=== PATIENT | female | born 1980 | race Caucasian/White ===

== ENCOUNTER 2023-11-10 12:47 | Outpatient (AMB) | payer BC, SELFPAY ==
--- NOTE | 2023-11-10 13:12 | A.SPINEOV_ITS ---
Intake Visit Reasons: lumbar radiculopathy Intake Note: Ms. Valdes is here today c/o right sided sciatica pain with numbness on right foot. Head Transfer Clerk Required: No Allergies Soy Allergy (Severe, Uncoded 11/10/23 13:14) [facility] Assessment & Plan Assessment & Plan (1) Lumbar disc herniation: Code(s): M51.26 - Other intervertebral disc displacement, lumbar region Category: Medical Plan Dear Nic, Thank you for referring Mrs Valdes to our office today. She is a very nice 43-ye ar-old female that presents to the office today for evaluation of an intermittent lumbar radiculopathy which started about 3-4 months ago. She had been having some issues in March when her back went out and she was having mainly back discomfort. Sometime in May she had a similar event but shortly thereafter she began experiencing pain shooting down the leg into her calf with a feeling of vibration and tingling sensation on the bottom of her foot. That seemed to get better for a bit, she went back to work in late August or early September and noticed abrupt increase in the pain again. She had been going through conservative management including anti-inflammatories, gabapentin, Aleve, naproxen and even Percocet as needed. She started physical therapy and has been doing that for the last few months without any significant improvement. The only thing that helped was an S1 transforaminal injection that did give her excellent relief for about 10 days. She had an MRI showing a herniated disc on the right at L5-S1. At a subsequent follow-up in your office, because of the intensity the pain, she wanted to be surgically evaluated in his here in the office today. PMH: She is otherwise healthy, history of hypertension and the current disc herniation that she is dealing with but other than that no major medical problems. Social hx: She has not smoke, drink use any recreational drugs Medications: Percocet, gabapentin, Aleve, naproxen Allergies: Anything containing soy Physical exam: She is awake alert oriented, she is here today using a walker. She has an antalgic gait and appears uncomfortable just getting up on the examining table. Positive straight leg raise at 20 degrees. She has mild weakness in her plantar flexion which I would rate as 4-5. Absent Achilles re flex on the right. Imaging review: Lumbar MRI done at [facility] in September 2023 shows transitional anatomy and a right L5-S1 herniated disc. The disc herniation is compressing and displacing posteriorly the right S1 nerve root. Impression: 43-year-old female suffering from a right S1 radiculopathy secondary to herniated disc. She attempted conservative management over the course of 3-4 months. The only thing that was successful was not S1 transforaminal injection. That gave her about 10 days of relief. However, the pain is currently back to being quite intense. She has been unable to work. Unable to participate in activities with her family. She has been using a walker just to get around. She does demonstrate some weakness of her foot in an absent Achilles reflex. I showed her imaging to Dr. Matias, she is a good candidate for a right L5-S1 microdiskectomy. I have tentatively booked her for 11/20/2023. Pt was given risk and benefits of surgery including but not limited to infection, hematoma , nerve injury,durotomy, weakness,bowel/bladder injury, persistent pain, recurrent herniated disc as well as the option to continue with conservative treatment and patient wishes to proceed with surgery. Pt is aware they should stop their motrin, aspirin 7 days prior to surgery. All questions were answered to the best of our ability. If there is anything about this patients medical history that we have overlooked or concerns you have about us proceeding with surgery we would appreciate any input you can offer. Thank you for allowing us to care for your patient. The total time spent with this visit with this patient was 45 minutes reviewing history, physical exam, lumbar imaging review, and implementation of treatment plan or further diagnostic testing Tucker Matias MD,PhD [facility] Coding Level of Care Code New Pt Level 4 (18916) Diagnoses Lumbar disc herniation M51.26
== END 2023-11-10 14:26 | disposition home or self-care (01) ==
PROVIDERS: PCP Internal Medicine; Referring Provider Physician Assistant; Visit Provider Physician Assistant
DX: M51.26 Other intervertebral disc displacement, lumbar region (principal)
CPT/HCPCS: 99204

== ENCOUNTER → 2023-11-10 12:47 | Outpatient (BNVA) | payer BC, SELFPAY | PROVIDERS: PCP Internal Medicine; Visit Provider Physician Assistant ==

== ENCOUNTER 2023-11-20 08:47 | Day surgery (SDC) | payer BC, SELFPAY ==
[2023-11-14 13:34] VITALS: BP 162/80; PULSE 84; RESP 18; O2SAT 100; BMI 27.3
--- NOTE | 2023-11-14 13:59 | ECG_ITS ---
Test Reason : PRE OP* Patient had to sit up during ekg. Blood Pressure : / mmHG Vent. Rate : 078 BPM Atrial Rate : 078 BPM P-R Int : 164 ms QRS Dur : 080 ms QT Int : 354 ms P-R-T Axes : 060 036 039 degrees QTc Int : 403 ms Normal sinus rhythm Nonspecific T wave abnormality Abnormal ECG No previous ECGs available Referred By: Dyana Diaz Electronically Signed By:NAHOMY HILL
[2023-11-14 14:27] LABS: MANUAL DIFF FLAG NO
[2023-11-14 14:50] LABS: Basophils Percent Auto 0.4 % (0-2); Eosinophils Absolute Auto 0.1 X10*3/uL (0.0-0.4); Eosinophils Percent Auto 1.1 % (0-4); Hemoglobin 13.8 g/dl (12.0-16.0); Imm Gran Abs Auto 0.03 X10*3/uL (0.00-0.03); Imm Gran Pct Auto 0.4 % (0.0-0.4); Lymphocytes Percent Auto 27.9 % (20-40); Mean Corpuscular HGB Conc 33.7 g/dl (31.0-35.0); Mean Corpuscular Volume 95.1 fL (80.0-98.0); Mean Platelet Volume 9.1 fL (9.4-12.3); Monocytes Absolute Auto 0.5 X10*3/uL (0.1-1.2); Monocytes Percent Auto 6.3 % (2-11); Neutrophils Absolute Auto 4.7 x10*3/uL (2.0-8.3); Neutrophils Percent Auto 63.9 % (45-73); Platelet Count 305 X10*3/uL (160-400); Red Blood Count 4.31 X10*6/uL (4.20-5.50); Red Cell Distribution Width 12.7 % (11.0-16.0); White Blood Count 7.3 X10*3/uL (4.8-10.8)
[2023-11-14 15:12] LABS: Anion Gap 12 (12-20); Blood Urea Nitrogen 12 mg/dL (9-16); Calcium 9.4 mg/dL (8.4-10.2); Carbon Dioxide 26 mmol/L (22-29); Chloride 105 mmol/L (96-108); Creatinine Clr Calc Pharmacy 83.1; Estimated Glomerular Filt Rate > 60; Glucose Random 87 mg/dL (60-115); Potassium 3.6 mmol/L (3.3-5.1); Sodium 139 mmol/L (135-145)
--- NOTE | 2023-11-19 09:36 | P.CONAN_ITS ---
Documented by User: Pam Riojas NP 11/19/23 09:38 HPI - Anesthesia Eval Consult details Narrative: 43yo F for Right L5-S1 MicroLumbar discectomy PAT eval with Dr Diaz 11/14/23 [facility] Active Problems Active Problems: All Active Problems Lumbar disc herniation (Acute) Past Medical History Medical History Scoliosis Back pain IgA nephropathy Weakness Numbness Positive TB test Asthma ADHD HTN (hypertension) Surgical History Surgical History Hx of wisdom tooth extraction History of loop electrical excision procedure (LEEP) No pertinent past surgical history Social History Social History Are you a primary home child care provider to a significant other at home: No Do you presently have visiting nurse or other home services: No Patient Tobacco Use Status: Never used Tobacco Use of substances other than those prescribed or required for medical reasons: Yes Substance Use Type Other:: vape, and gummies Substance Use Frequency: Daily Have you been hit, kicked, punched, or otherwise hurt by someone within the past year? If so, by whom?: No Are you DNR?: No Advance Directives: No Advance Directives Information Provided: Yes Advance Directives on File: No Recently lost weight without trying: No Eating poorly because of decreased appetite: No Nutrition Risks: No Nutritional Risk Patient : No : No Poor oral hygiene: Yes (upper left crown) Meds Allergies Allergy/AdvReac Type Severity Reaction Status Date / Time Soy Allergy Severe Hives Uncoded 11/10/23 13:14 Home Medications ?Medication ?Instructions ?Recorded ?Confirmed ?Last Taken ?Type bupropion HCl 75 mg tablet 37.5 mg PO BID 11/14/23 11/14/23 Unknown History buspirone 5 mg tablet 5 mg PO TID 11/14/23 11/14/23 Unknown History clindamycin-tretinoin 1.2 %-0.025 1 appl topical Q OTHER DAY 11/14/23 11/14/23 Unknown History % topical gel dextroamphetamine-amphetamine 5 mg 2.5 mg PO BID 11/14/23 11/14/23 Unknown History tablet drospirenone (contraceptive) 4 mg 1 tab PO DAILY 11/14/23 11/14/23 Unknown History (28) tablet (Slynd) gabapentin 300 mg capsule 300 mg PO QID 11/14/23 11/14/23 Unknown History hydrochlorothiazide 12.5 mg tablet 12.5 mg PO DAILY 11/14/23 11/14/23 Unknown History lorazepam 0.5 mg tablet 0.5 mg PO DAILY PRN anxiety 11/14/23 11/14/23 Unknown History oxycodone-acetaminophen 5 mg-325 1 tab PO QID 11/14/23 11/14/23 Unknown History mg tablet propranolol 20 mg tablet 20 mg PO BID PRN Anxiety 11/14/23 11/14/23 Unknown History Exam Height,Weight and Vital Signs: Height 5 ft 4 in Weight 72.121 kg Last Vital Signs Pulse 84 11/14/23 13:34 Resp 18 11/14/23 13:34 BP 162/80 H 11/14/23 13:34 Pulse Ox 100 11/14/23 13:34 O2 Del Method Room Air 11/14/23 13:34 Pertinent Lab Results Pertinent Lab Results: Laboratory Tests 11/14/23 14:25 WBC 7.3 RBC 4.31 Hgb 13.8 Hct 41.0 MCV 95.1 MCH 32.0 MCHC 33.7 RDW 12.7 Plt Count 305 MPV 9.1 L Immature Gran % (Auto) 0.4 Neut % (Auto) 63.9 Lymph % (Auto) 27.9 [place] % (Auto) 6.3 Eos % (Auto) 1.1 Baso % (Auto) 0.4 Lymph # (Auto) 2.0 [place] # (Auto) 0.5 Eos # (Auto) 0.1 Baso # (Auto) 0.0 Abs Immat Gran (auto) 0.03 Absolute Neuts (auto) 4.7 Absolute Nucleated RBC 0.000 Nucleated RBC % (auto) 0.0 Sodium 139 Potassium 3.6 Chloride 105 Carbon Dioxide 26 Anion Gap 12 BUN 12 Creatinine 0.84 Estim Creat Clear Calc 83.1 Estimated GFR > 60 Random Glucose 87 Calcium 9.4 Narrative Narrative: EKG 10/2023 Vent. Rate : 078 BPM Atrial Rate : 078 BPM P-R Int : 164 ms QRS Dur : 080 ms QT Int : 354 ms P-R-T Axes : 060 036 039 degrees QTc Int : 403 ms Normal sinus rhythm Nonspecific T wave abnormality Abnormal ECG No previous ECGs available Assessment and Plan Assessment Anesthesia Assessment: Chart Reviewed Documented by User: Meagan Carlin MD 11/20/23 11:34 PMFSH Past Medical History Medical History Scoliosis Back pain IgA nephropathy Weakness Numbness Positive TB test Asthma ADHD HTN (hypertension) Surgical History Surgical History Hx of wisdom tooth extraction History of loop electrical excision procedure (LEEP) No pertinent past surgical history History of Problems with Anesthesia: No Social History Social History Are you a primary home child care provider to a significant other at home: No Do you presently have visiting nurse or other home services: No Patient Tobacco Use Status: Never used Tobacco Use of substances other than those prescribed or required for medical reasons: Yes Substance Use Type Other:: vape, and gummies Substance Use Frequency: Daily Have you been hit, kicked, punched, or otherwise hurt by someone within the past year? If so, by whom?: No Are you DNR?: No Advance Directives: No Advance Directives Information Provided: Yes Advance Directives on File: No Recently lost weight without trying: No Eating poorly because of decreased appetite: No Nutrition Risks: No Nutritional Risk Patient : No : No Poor oral hygiene: Yes (upper left crown) Meds Allergies Allergy/AdvReac Type Severity Reaction Status Date / Time Soy Allergy Severe Hives Uncoded 11/10/23 13:14 Home Medications ?Medication ?Instructions ?Recorded ?Confirmed ?Last Taken ?Type bupropion HCl 75 mg tablet 37.5 mg PO BID 11/14/23 11/14/23 Unknown History buspirone 5 mg tablet 5 mg PO TID 11/14/23 11/14/23 Unknown History clindamycin-tretinoin 1.2 %-0.025 1 appl topical Q OTHER DAY 11/14/23 11/14/23 Unknown History % topical gel dextroamphetamine-amphetamine 5 mg 2.5 mg PO BID 11/14/23 11/14/23 Unknown History tablet drospirenone (contraceptive) 4 mg 1 tab PO DAILY 11/14/23 11/14/23 Unknown History (28) tablet (Slynd) gabapentin 300 mg capsule 300 mg PO QID 11/14/23 11/14/23 Unknown History hydrochlorothiazide 12.5 mg tablet 12.5 mg PO DAILY 11/14/23 11/14/23 Unknown History lorazepam 0.5 mg tablet 0.5 mg PO DAILY PRN anxiety 11/14/23 11/14/23 Unknown History oxycodone-acetaminophen 5 mg-325 1 tab PO QID 11/14/23 11/14/23 Unknown History mg tablet propranolol 20 mg tablet 20 mg PO BID PRN Anxiety 11/14/23 11/14/23 Unknown History Exam Airway Mallampati Class: II TM Dist: >3cm Neck ROM: Full Loose/Missing/Broken Teeth: No Heart: RRR Lungs: CTA Assessment and Plan Assessment Anesthesia Assessment: Anesthesia Plan Discussed Final Anesthetic Review History of Problems with Anesthesia: No NPO: Yes ASA Class: II Final Preanesthetic Review: Meds/Allgs Chart Reviewed, Consent Obtained/Reviewed and Anes Risks/Benef Reviewed Patient Risk: Low Procedure Risk: Intermediate Anesthetic Plan Anesthetic Plan: GA Disposition: Standard PACU
[2023-11-20] VITALS (9 sets, daily range): BP systolic 110–151; BP diastolic 72–89; PULSE 89–120; RESP 14–18; TEMP 36.1–37.6; O2SAT 98–100; BMI 27.5
--- NOTE | 2023-11-20 07:28 | P.DS_ITS ---
DS: Providers Provider Date of Service: 11/20/23 Date of discharge: 11/20/23 Primary care physician: Ronny Ponce MD Admitting clinician: Tez Matias DS: Diagnosis Discharge Diagnosis (1) Lumbar disc herniation: Status: Acute DS: Summary Time Attestation Discharge Coordination Time (in mins): 5 Quality: Safe Use of Opioids Does Pt have an Active Cancer Diagnosis on the Problem List?: No Quality: Stroke Does the patient have a stroke diagnosis?: No Physical Exam Vital Signs: Vital Signs: Last Vital Signs Pulse 84 11/14/23 13:34 Resp 18 11/14/23 13:34 BP 162/80 H 11/14/23 13:34 Pulse Ox 100 11/14/23 13:34 O2 Del Method Room Air 11/14/23 13:34 BMI result Body Mass Index 27.3 Discharge Plan Discharge Patient Disposition: Home, Self-Care Referrals: Ronny Ponce MD [Primary Care Provider] - 1 Week Discharge Medications: New oxycodone 5 mg tablet 5 mg PO Q4H PRN (Reason: pain) Qty: 20 0RF Rx Instructions: Partial Fill upon patient request. Continued bupropion HCl 75 mg tablet 37.5 mg PO BID buspirone 5 mg tablet 5 mg PO TID lorazepam 0.5 mg tablet 0.5 mg PO DAILY PRN (Reason: anxiety) gabapentin 300 mg capsule 300 mg PO QID propranolol 20 mg tablet 20 mg PO BID PRN (Reason: Anxiety) dextroamphetamine-amphetamine 5 mg tablet 2.5 mg PO BID clindamycin-tretinoin 1.2-0.025 % gel 1 appl topical Q OTHER DAY hydrochlorothiazide 12.5 mg tablet 12.5 mg PO DAILY Slynd 4 mg (28) tablet 1 tab PO DAILY oxycodone-acetaminophen 5-325 mg tablet 1 tab PO QID Diet: Advance to usual diet Activity on Discharge: As tolerated Activity Restrictions/Additional Instructions: After your spinal surgery we ask you to observe the following restrictions/guidelines: Activity: It is normal to feel some discomfort as you increase your activity, but that will improve with time. We ask you avoid heavy lifting or acitivities that cause pain. As a general rule, 8lbs is a safe limit for lifting right after surgery. Walk as much as you feel comfortable but not to exhaustion. You will feel extra tired the first few days after surgery. Stay well hydrated. It is OK to walk up and down stairs You may return to driving when you are off narcotics (such as vicodin, oxycodone, dilaudid, etc), and you are back to normal functional capacity. If you have any concerns please check with office before driving. Return to work is specific to each patient and each surgery, so please speak with your doctor/PA at first follow up. Please bring paperwork such as FMLA at that time if you need it filled out. Medications: For optimum pain control, it is best to start with a combination of 500 mg of Tylenol every 4 hours with 600 mg of Motrin every 8 hours, and use narcotics as needed in between for breakthrough pain. We will give you a short supply of narcotics after surgery (usually one weeks worth). If you need more please call the office but do not use more than prescribed. You will need to give our office 48 hours notice if you need narcotics refilled and we do not fill narcotics on weekends or evenings. If you are on a narcotic, it is a good idea to take a stool softener such as colace or senna to avoid constipation If you take blood thinner such as aspirin, Plavix, Coumadin, Effient, Eliquis etc for conditions such as Afib, DVT, Pulmonary embolus, coronary disease, stents etc please speak with your surgeon about specific details as to when you can resume these medications. You can resume NSAIDs on post op day 1 (eg: Motrin, Naproxen, etc). Follow up: Please call the office, , after surgery to arrange a 3 week follow up for wound check. Wound Care: You may remove your dressing on the first day after surgery. ?You may ?leave open to air. Please do not remove the steri strips underneath. they will fall off on their own in one week. IT IS NORMAL FOR THE WOUND TO OOZE OR BE BLOODY FOR A FEW DAYS AFTER SURGERY. ?IF THIS HAPPENS JUST PLACE NEW DRESSING OVER IT TO AVOID STAINING CLOTHES. You may shower on post op day # 1 We ask that you do not let the water soak the wound. If it does get wet, just towel dry lightly. Please do not scrub your incision or place any type of chemical/ointment on the wound. No tub baths, pools or jacuzzis for one month. If you have any leaking or redness from your wound, or fevers, please call office Print Language: Italian
--- NOTE | 2023-11-20 09:23 | MHC.SHP ---
Pre-Procedural Eval Section A - 24 Hr Update-Section A only Date of Service: 11/20/23 The patient is an INPATIENT: No Section B - Complete if H&P > 30 days Chief Complaint: Other intervertebral disc displacement, lumbar reg Details of Present Illness: right leg pain Allergies: Allergies Allergy/AdvReac Type Severity Reaction Status Date / Time Soy Allergy Severe Hives Uncoded 11/10/23 13:14 Review of Systems Sugical H&P ROS: Negative: Constitution, Cardiovascular, Respiratory, Neurological, Psychiatric, Hem-Onc, Allergic/Immunologic, Gastrointestinal, Genitourinary, Musculoskeletal, Integumentary, Endocrine and Eyes/Ears/Nose/Throat Exam Surgical H&P Exam: Normal: HEENT, Normal: Heart, Normal: Lungs, Normal: Extremities, Normal: Abdomen, Normal: Skin and Normal: Neurological (awake, alert) Plan Diagnosis/Plan: Unchanged I have reviewed the history and physical and performed a pertinent physical examination on my patient. No changes have occurred unless specified. L5-S1 microdiscectomy, right side Time Spent With Patient Time: Total time managing care of this patient today _5___ minutes.
[2023-11-20 09:26] LABS: UPreg QC Valid YES; Urine Pregnancy NEGATIVE (NEGATIVE)
[2023-11-20] MEDS: methocarbamoL 750 MG TABLET PO (09:35)
[2023-11-20] MEDS: Lactated Ringers 1,000 ML 100 ML IVCONT (09:35)
--- NOTE | 2023-11-20 10:46 | W.PM.OPN ---
Operative Note Operative Note Date of Service: 11/20/23 Narrative: Preoperative diagnosis: Right lumbar radiculopathy due to disc herniation Postoperative diagnosis: Same Procedure: Right L5-S1 microdiskectomy with microscope Surgeon: Tez Matias MD, PhD Bass Mechanism Maker: oj Nassar This 43-year-old female suffering from severe right leg pain due to extruded disc herniation compressing the right S1 nerve root. The patient was offered a lumbar microdiskectomy to decompress the nerve root. The procedure complications were explained. The patient was consented. The patient was brought to the operating room and endotracheally intubated. The patient was turned in a prone position on the Oziel frame. Prepping and draping was done followed by time-out. A mid lumbar incision was made followed by release of the paravertebral muscles on the right side to expose the L5-S1 interspace. An intraoperative x-rays obtained to confirm the correct level. The microscope was brought in. A right L5 laminotomy was done followed by opening of the flavum ligament. The S1 nerve root was identified and retracted medially to expose the L5-S1 disc space. I could palpate a disc herniation medial from the S1 nerve root, which I carefully removed with a pituitary. This resulted in an excellent decompression of the S1 nerve root. Hemostasis was done. The microscope was removed. Marcaine was injected intramuscularly.The incision was closed in two layers. Steri-Strips used to approximate seizure. An op-site were taken there was used to cover the incision. All sponge and needle counts were correct. Patient was extubated and transported in stable condition to recovery room. this procedure was done with the aid of a physician residential living assistant who performed the initial exposure until the microscope was brought in and performed the closure of the incision. Anesthesia: General Blood loss: 10 mL Complications: None Specimen: None Surgical time: 45 minutes Disposition: Discharge home
[2023-11-20] MEDS: oxyCODONE HCl Immed Release 5 MG TABLET PO (11:35)
== END 2023-11-20 12:45 | disposition home or self-care (01) ==
LOC: HO.SSS 08:48
PROVIDERS: Anesthesiology; Nurse Practitioner; PCP Internal Medicine; Visit Provider Neurological Surgery
PROC: (CPT 63030; principal; 2023-11-20 09:20)
DX: M51.16 Intervertebral disc disorders with radiculopathy, lumbar region (principal); R20.2 Paresthesia of skin; R26.89 Other abnormalities of gait and mobility; Z79.899 Other long term (current) drug therapy; Z79.1 Long term (current) use of non-steroidal anti-inflammatories (NSAID)
CPT/HCPCS: 63030; 36415; 80048; 81025; 85025; 93005; J0131; J0690; J1100; J1170; J1885; J2250; J2405; J2704; J3010

== ENCOUNTER → 2023-11-20 08:47 | Outpatient (BNV) | payer BC, SELFPAY | PROVIDERS: PCP Internal Medicine; Visit Provider Neurological Surgery | DX: M51.26 Other intervertebral disc displacement, lumbar region (principal) | CPT/HCPCS: 63030; 99499 ==

== ENCOUNTER 2023-12-11 13:32 | Outpatient (AMB) | payer BC, SELFPAY ==
--- NOTE | 2023-12-11 13:34 | HO.SPINEOV ---
Intake Visit Reasons: 1st post op Intake Note: Mrs. 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 She has had significant improvement in her leg pain. She still has some numbness on the outside of her foot. She has been slowly increasing her activity levels but still experiencing some fatigue. Her wound is healed up very nicely. She is weaning herself off gabapentin slowly she did have some side effects when she tried to do it quickly. We discussed activity guidelines, restrictions and expectations after lumbar microdiskectomy. At this point, she is still early in the healing and I do not want her to go back to work. I told her she could return to work on December 31, starting with half days for 1 week and then can transition to full day if she is feeling up to it. I would like to see her back in 6 weeks for final postoperative visit. I told her to hold off on doing physical therapy at this point as things are a little bit early in the healing process and I do not want to risk a recurrent herniated disc. Tucker Matias MD, PhD [facility] Coding Level of Care Code Global (81048) Diagnoses Lumbar disc herniation M51.26
== END 2023-12-11 13:58 | disposition home or self-care (01) ==
PROVIDERS: PCP Internal Medicine; Visit Provider Physician Assistant
DX: M51.26 Other intervertebral disc displacement, lumbar region (principal)
CPT/HCPCS: 99024

== ENCOUNTER → 2023-12-11 13:32 | Outpatient (BNVA) | payer BC, SELFPAY | PROVIDERS: PCP Internal Medicine; Visit Provider Physician Assistant ==

== ENCOUNTER 2024-01-23 13:32 | Outpatient (AMB) | payer BC, SELFPAY ==
--- NOTE | 2024-01-23 13:46 | HO.SPINEOV ---
Intake Visit Reasons: 2nd post op Intake Note: Ms. Valdes is here today for her 2nd post-op. Reliability Technologist Required: No Allergies Soy Allergy (Severe, Uncoded 11/10/23 13:14) Hives Assessment & Plan Assessment & Plan (1) Lumbar disc herniation: Code(s): M51.26 - Other intervertebral disc displacement, lumbar region Category: Medical Plan Mrs Valdes is 2 months out from her L5-S1 microdiskectomy. She is continuing to make significant improvements almost daily. She did eventually quit work and parted ways with the [employer] and is now going into graduate school full-time. I think she made a wonderful recovery. She is looking at trying to restrain thin and get herself back to some functional ability with her core. I gave her a prescription for PT to work with some exercises and see if she can make some further improvements. We will see her back on an as-needed basis at this point. Tucker Matias MD, PhD [facility] Orders: Orders PT Evaluation and Treatment Today M51.26 - Other intervertebral disc displacement, lumbar region Coding Level of Care Code Global (41834) Diagnoses Lumbar disc herniation M51.26
== END 2024-01-23 14:42 | disposition home or self-care (01) ==
LOC: HO.HNS 13:33
PROVIDERS: PCP Internal Medicine; Visit Provider Physician Assistant
DX: M51.26 Other intervertebral disc displacement, lumbar region (principal)
CPT/HCPCS: 99024

== ENCOUNTER → 2024-01-23 13:32 | Outpatient (BNVA) | payer BC, SELFPAY | PROVIDERS: PCP Internal Medicine; Visit Provider Physician Assistant ==